=== PATIENT | male | born 1950 | race Caucasian/White ===

== ENCOUNTER 2017-05-11 10:53 | Inpatient (IN) | payer MEDICARE, MEDICAID ==
[~2017-05-11] VITALS: Ht 177.8 cm; Wt 68.0 kg
--- NOTE | 2017-05-11 11:56 | NUR ---
gave report to zainab
--- NOTE | 2017-05-11 11:57 | NUR ---
pt to 315
[2017-05-11] MEDS ORDERED: PANT40TA4 PO (12:09)
[2017-05-11] MEDS ORDERED: MULT-213 PO (12:09)
[2017-05-11] MEDS ORDERED: CLON0.5T PO (12:09)
[2017-05-11] MEDS ORDERED: ASPI81TA2 PO (12:09)
[2017-05-11] MEDS ORDERED: ONDA4TAB5 PO (12:09)
[2017-05-11] MEDS ORDERED: UBID100C13 PO (12:09)
[2017-05-11] MEDS ORDERED: PARO20TA6 PO (12:09)
[2017-05-11] MEDS ORDERED: SENN8.6T6 PO (12:09)
[2017-05-11] MEDS ORDERED: DOCU-25 PO (12:09)
[2017-05-11] MEDS ORDERED: ATOR40TA PO (12:09)
[2017-05-11] MEDS ORDERED: ACET-2605 PO (12:09)
[2017-05-11] MEDS ORDERED: HYDR2TAB35 PO (12:09)
[2017-05-11] MEDS ORDERED: APIX5TAB PO (12:09)
[2017-05-11] MEDS ORDERED: CARV6.252 PO (12:09)
[2017-05-11] MEDS ORDERED: CHOL200026 PO (12:09)
--- NOTE | 2017-05-11 13:00 | NUR ---
REPRESENTATIVE OPENING NOTES. PT RECEIVED VIA ER. PT A&0X3 SITTING ON EDGE OF BED WITH SOME CONFUSION TO WHY HE WAS TRANSPORTED HERE. PT TOLERATING ROOM AIR WITH NO SOB. LUNGS AUSCULTATED CLEAR THROUGHOUT. PT REPORTING MINOR CHRONIC PAIN TO RIGHT SHOULDER AND MINOR CHRONIC PAIN TO LEFT SIDE CARDIAC DEVICE. PT REQUESTING ANALGESIA BUT DECLINES TYLENOL, PT SPECIFICALLY REQUESTING PERCOCET 20MG. PT WITH NO SIGN OF DISTRESS OR DISCOMFORT, ALL VITALS WNL. PT REPORTING MINOR ANXIETY AND REQUESTING ANXIOLYTIC. PT IS WITHOUT IVC. PT BRIEFED ON TODAY'S POC. PT BED IN LOWEST LOCKED POSITION WITH CALL HOPKINS WITH REACH AND HANDRAILSX2. PT WITHOUT CONCERN OR COMPLAINT AT THIS TIME.
[2017-05-11] MEDS ORDERED: ACETAMINOPHEN 325 MG TABLET PO PRN (15:00)
[2017-05-11] MEDS ORDERED: Z GUARD REMEDY 2 OZ OINT TP PRN (15:00)
[2017-05-11] MEDS ORDERED: HYDROCODONE/APAP 5/325MG 1 EACH TABLET PO PRN (15:00)
[2017-05-11] MEDS ORDERED: SENNOSIDES 8.6 MG TABLET PO PRN (15:00)
[2017-05-11] MEDS ORDERED: MAG HYDROX/AL HYDROX/SIMETH 30 ML UDC PO PRN (15:00)
[2017-05-11] MEDS ORDERED: ONDANSETRON 4 MG TAB.RAPDIS PO PRN (15:00)
[2017-05-11] MEDS ORDERED: MAGNESIUM HYDROXIDE 30 ML UDC PO PRN (15:00)
[2017-05-11] MEDS ORDERED: ONDANSETRON HCL/PF 4 MG/2 ML VIAL IVP PRN (15:00)
[2017-05-11] MEDS ORDERED: ZOLPIDEM TARTRATE 5 MG TABLET PO PRN (15:00)
[2017-05-11] MEDS ORDERED: IV NS 0.9% 1,000 ML IV PRN (15:00)
[2017-05-11] MEDS: clonazePAM 0.5 MG TABLET PO PRN (15:48)
--- NOTE | 2017-05-11 15:52 | NUR ---
PATIENT IN BED, APPEARS ANXIOUS. DENIES CHEST PAIN. ON ROOM AIR, TOLERATING WELL, SATING 98%, NO SOB. GIVEN KLONOPIN 0.5MG PO PRN. WILL REASSESS.
[2017-05-11 16:00] VITALS: BP 125/78
--- NOTE | 2017-05-11 16:00 | NUR ---
DAIRY DEPARTMENT MANAGER NOTES. PT REFUSING IVC PLACEMENT, PT EDUCATION PROVIDED, RISK BENEFIT EXPLAINED. PT REFUSEDX3. CHARGE NURSE AND MD NOTIFIED.
--- NOTE | 2017-05-11 16:26 | NUR ---
PATIENT STATED HE HAD A RASH WHEN HE TOOK NORCO BEFORE AND REQUESTED PERCOCET INSTEAD FOR PAIN. NOTIFIED DR. AMANDO GUERRA WITH NEW ORDERS NOTED AND ACKNOWLEDGED, INFORMED PHARMACY AND UPDATED PATIENT ALLERGIES TO MEDICATION.
[2017-05-11] MEDS: CARVEDILOL 6.25 MG TABLET PO SCH ×2 (16:49→16:56)
[2017-05-11] MEDS: oxyCODONE/APAP (5/325 MG) 1 UDTAB TABLET PO PRN ×2 (16:49→20:52)
[2017-05-11] MEDS: APIXABAN 5 MG TABLET PO SCH (16:50)
--- NOTE | 2017-05-11 16:58 | NUR ---
CARVEDILOL 6.25MG PO NON ADMINISTERED, PATIENT REFUSING, EDUCATE AND EXPLAINED RISK AND BENEFITS OF THE MEDICATION, PATIENT STILL REFUSED X3, AND STATED "MY BLOOD PRESSURE IS NOT HIGH" Addendum: 05/11/17 at 1700 by ROBERT PACHECO RN MEDICATION WAISTED.
[2017-05-11] MEDS ORDERED: OXYC-34 PO (18:29)
--- NOTE | 2017-05-11 18:33 | NUR ---
PATIENT REPORTED PERCOCET 5/325MG 1 TAB. IS INEFFECTIVE RELIEVING HIS RIGHT SHOULDER PAIN. RECORDS SHOWING IN THE FACILITY PATIENT WAS TAKING PERCOCET 10/325MG. INFORMED DR. AMANDO GUERRA WITH NEW ORDERS NOTED AND ACKNOWLEDGED.
--- NOTE | 2017-05-11 19:35 | NUR ---
MS/RN NOTES RECEIVED PT. LYING IN BED. PT. IS AWAKE, ALERT AND ORIENTED X4. BREATHING EVEN AND UNLABORED ON ROOM AIR. NO SOB OR RESPIRATORY DISTRESS NOTED AT THIS TIME. PT. COMPLAINING OF PAIN 5/10 IN HIS RIGHT ARM. WILL CONTINUE TO MONITOR FOR PAIN AND ADMINISTER PAIN MEDICATION TO PT. ORDERED. PT. REMAINS WITH NO IV ACCESS. PER DAYSHIFT NURSE IS AWARE. BED LOCKED AND IN LOWEST POSITION, SIDE RAILS UP X2, WILL CONTINUE TO MONITOR.
--- NOTE | 2017-05-11 19:46 | NUR ---
BOTTOM STAINER CLOSING NOTES. PT A&0X3, RESTING. PT TOLERATING ROOM AIR WITH NO SOB. PT REPORTING PAIN 7/10 FROM PREVIOUS INJURIES AND SOME ANXIETY. PT WITH NO S/S OF DISTRESS OR DISCOMFORT. PT REFUSED IVC AND REMAINS WITHOUT ACCESS. PT BED IN LOWEST LOCKED POSITION, HANDRAILSX2 AND CALL HOPKINS WITHIN REACH. ALL DAY NURSE DUTIES ATTENDED TO, WILL ENDORSE TO NIGHT NURSE.
[2017-05-11 20:22] VITALS: BP 115/59
[2017-05-11] MEDS: ATORVASTATIN 40 MG TABLET PO SCH (22:19)
--- NOTE | 2017-05-12 06:58 | NUR ---
MS/RN NOTES PT. IS LYING IN BED RESTING. BREATHING EVEN AND UNLABORED ON ROOM AIR. NO SOB OR RESPIRATORY DISTRESS OR PAIN NOTED AT THIS TIME.PT. REMAINS WITH NO IV ACCESS, MD IS AWARE. ALL PT. NEEDS MET. ALL DUE MEDICATIONS GIVEN. BED LOCKED AND IN LOWEST POSITION, SIDE RAILS UP X2, WILL ENDORSE TO DAYSHIFT NURSE FOR CONTINUITY OF CARE.
--- NOTE | 2017-05-12 07:58 | NUR ---
MS/RN OPENING NOTE PATIENT RECEIVED IN BED IN STABLE CONDITION. A/O X 4. NO SIGNS OF ACUTE DISTRESS. NO COMPLAIN OF PAIN OR DISCOMFORT. ALL NEEDS ATTENDED TO. CALL LIGHT WITHIN REACH. WILL CONTINUE TO MONITOR TO ENSURE SAFETY.
[2017-05-12 08:00] VITALS: BP 146/75
[2017-05-12 08:49] LABS: BASOPHILS % (AUTO) 0.2 % (0.0-2.0); EOSINOPHILS # (AUTO) 0.2 /CMM (0.0-0.7); HEMATOCRIT 49 % (39-51); LYMPHOCYTES % (AUTO) 25.1 % (20.0-44.0); MEAN CORPUSCULAR HEMOGLOBIN 32 PG (26.0-33.0); MEAN CORPUSCULAR HGB CONC 33 g/dl (31.0-36.0); MEAN CORPUSCULAR VOLUME 99 fL (80-96); MONOCYTES # (AUTO) 0.8 /CMM (0.1-1.30); MONOCYTES % (AUTO) 9.3 % (2.0-12.0); NEUTROPHILS # (AUTO) 5.1 /CMM (1.8-8.9); NEUTROPHILS % (AUTO) 62.4 % (43.0-81.0); PLATELET COUNT (AUTO) 219 /CMM (150-450); RDW COEFFICIENT OF VARIATION 13.5 (11.5-15.0); RED BLOOD CELL COUNT(AUTO) 4.97 MIL/uL (4.5-6.0); WHITE BLOOD COUNT (AUTO) 8.1 K/uL (4.3-11.0)
[2017-05-12] MEDS: PANTOPRAZOLE 40 MG TABLET.DR PO SCH (08:55)
[2017-05-12] MEDS: DOCUSATE SODIUM 100 MG CAPSULE PO SCH (08:55)
[2017-05-12] MEDS: MULTIVITAMINS,THERAGRAN 1 UDTAB TABLET PO SCH (08:55)
[2017-05-12] MEDS: oxyCODONE/APAP (5/325 MG) 1 UDTAB TABLET PO PRN ×3 (08:55→23:06)
[2017-05-12] MEDS: APIXABAN 5 MG TABLET PO SCH ×2 (08:55→16:24)
[2017-05-12] MEDS: ASPIRIN 81 MG TAB.CHEW PO SCH (08:55)
[2017-05-12] MEDS: PAROXETINE HCL 20 MG TABLET PO SCH (08:56)
[2017-05-12] MEDS: CARVEDILOL 6.25 MG TABLET PO SCH ×2 (08:56→16:24)
[2017-05-12] MEDS: CHOLECALCIFEROL 1,000 UNIT TABLET (VIT D3) PO SCH (08:57)
[2017-05-12 09:08] LABS: THYROID STIMULATING HORMONE 0.724 uIU/mL (0.358-3.74)
[2017-05-12 09:11] LABS: ALBUMIN 3.8 g/dL (3.4-5.0); BILIRUBIN,DIRECT 0.1 mg/dL (0.0-0.2); BILIRUBIN,TOTAL 0.9 mg/dL (0.2-1.0); CREATININE 1.1 mg/dL (0.6-1.3); MAGNESIUM 1.8 mg/dL (1.8-2.4); PHOSPHORUS 3.9 mg/dL (2.5-4.9); TOTAL PROTEIN, SERUM 7.6 g/dL (6.4-8.2)
[2017-05-12 16:00] VITALS: BP 127/95
[2017-05-12] MEDS: clonazePAM 0.5 MG TABLET PO PRN (16:24)
--- NOTE | 2017-05-12 18:31 | NUR ---
MS/RN CLOSING NOTE PATIENT IN BED IN STABLE CONDITION. A/O X 4. NO SIGNS OF ACUTE DISTRESS. NO COMPLAIN OF PAIN OR DISCOMFORT. ALL NEEDS ATTENDED TO. CALL LIGHT WITHIN REACH. WILL ENDORSE TO NEXT SHIFT FOR CONTINUITY OF CARE.
--- NOTE | 2017-05-12 19:22 | NUR ---
MS RN NOTES RECEIVED PT IN BED, AWAKE, A/0 X 4, VERBALLY RESPONSIVE. WATCHING TV AT THIS TIME. NO DISTRESS, NO SOB NOTED. RESPIRATION IS EVEN AND UNLABORED. PT REFUSED IV INSERTION , RISK AND BENEFITS EXPLAINED. PT STILL REFUSED. NO C/O PAIN OR DISCOMFORT AT THIS TIME. ALL NEEDS ATTENDED AND MET. KEPT COMFORTABLE. SAFETY PRECAUTIONS OBSERVED. CALL LIGHT WITHIN REACH. WILL CONT TO MONITOR.
[2017-05-12 20:00] VITALS: BP 124/87
[2017-05-12] MEDS: ATORVASTATIN 40 MG TABLET PO SCH (22:59)
--- NOTE | 2017-05-12 23:31 | NUR ---
placed a call to dr. lainez relayed pt's request for dilaudid due to percocet isn't effective for pain. received an order for dilaudid 2 mg q 4 hrs prn for severe pain, noted and carried out. pt is a/o x 4, stated that he usually takes dilaudid 2 mg tablet at [facility] and never had an allergic reaction to it.
[2017-05-13] MEDS ORDERED: HYDROMORPHONE HCL 2 MG TABLET ONE (00:54)
[2017-05-13] MEDS: HYDROMORPHONE HCL 2 MG TABLET PO PRN ×5 (01:11→23:33)
--- NOTE | 2017-05-13 07:04 | NUR ---
MS RN NOTES PT IN BED, RESTING AT THIS TIME, AROUSES EASILY, A/0 X 4, VERBALLY RESPONSIVE. NO DISTRESS, NO SOB NOTED. RESPIRATION IS EVEN AND UNLABORED. NO C/O PAIN OR DISCOMFORT AT THIS TIME. ALL NEEDS ATTENDED AND MET. KEPT COMFORTABLE. SAFETY PRECAUTIONS OBSERVED. CALL LIGHT WITHIN REACH. WILL ENDORSE TO NEXT SHIFT FOR GAIL. .
--- NOTE | 2017-05-13 07:20 | NUR ---
MS RN RECEIVED ON BED, AWAKE,ALERT,ORIENTED X4, NOT IN ANY FORM OF DISTRESS, RESPIRATIONS EVEN AND UNLABORED,NO SOB NOTED, LUNGS ARE CLEAR,ABDOMEN SOFT, POSITIVE BOWEL SOUNDS, DENIES PAIN AT THIS TIME, WILL MONITOR PATIENT'S CONDITION.
[2017-05-13] MEDS: PANTOPRAZOLE 40 MG TABLET.DR PO SCH (07:30)
--- NOTE | 2017-05-13 07:30 | NUR ---
MS RN RECEIVED ON BED, AWAKE,ALERT,ORIENTED X2-3, NOT IN ANY FORM OF DISTRESS, RESPIRATIONS EVEN AND UNLABORED, NO SOB NOTED. LUNGS ARE CLEAR,ABDOMEN SOFT,POSITIVE BOWEL SOUNDS, DENIES PAIN A THIS TIME, THAI SPEAKING TIANNA,WILL CONTINUE TO MONITOR PATIENT. Addendum: 05/13/17 at 1558 by ADRIAN RIVERO RN DISREGARD NOTES, WRONG PATIENT.
[2017-05-13 08:00] VITALS: BP 105/61
[2017-05-13] MEDS: CARVEDILOL 6.25 MG TABLET PO SCH ×2 (09:00→17:16)
--- NOTE | 2017-05-13 09:20 | NUR ---
MS RN BREAKFAST SERVED,DUE MEDS GIVEN,TOLERATWED WELL. ALL NEEDS ATTENDED.
[2017-05-13] MEDS: APIXABAN 5 MG TABLET PO SCH ×2 (09:56→17:15)
[2017-05-13] MEDS: ASPIRIN 81 MG TAB.CHEW PO SCH (09:56)
[2017-05-13] MEDS: DOCUSATE SODIUM 100 MG CAPSULE PO SCH (09:56)
[2017-05-13] MEDS: MULTIVITAMINS,THERAGRAN 1 UDTAB TABLET PO SCH (09:56)
[2017-05-13] MEDS: PAROXETINE HCL 20 MG TABLET PO SCH (09:57)
--- NOTE | 2017-05-13 11:00 | NUR ---
MS RN WAS SEEN BY DR. GOEL, NO ORDER AT THIS TIME, ALL NEEDS ATTENDED.
--- NOTE | 2017-05-13 11:30 | NUR ---
MS JONES WAS SEEN BY DR. ELIZABETH Lopez/ ORDERS MADE AND CARRIED OUT. Addendum: 05/13/17 at 1557 by ADRIAN RIVERO RN DISREGARD NOTES, WRONG PATIENT.
--- NOTE | 2017-05-13 11:40 | NUR ---
MS JONES WAS SEEN BY DR. FOWLER, AWAITING FOR ORDERS. Addendum: 05/13/17 at 1557 by ADRIAN RIVERO RN DISREGARD NOTES, WRONG PATIENT.
[2017-05-13] MEDS: clonazePAM 0.5 MG TABLET PO PRN (12:03)
[2017-05-13] MEDS: CHOLECALCIFEROL 1,000 UNIT TABLET (VIT D3) PO SCH (12:07)
[2017-05-13 16:00] VITALS: BP 112/63
--- NOTE | 2017-05-13 17:59 | NUR ---
MS RN ON BED, NO CHANGE OF CONDITION.
--- NOTE | 2017-05-13 19:25 | NUR ---
MS RN NOTES RECEIVED PT IN BED, A/0 X 4, VERBALLY RESPONSIVE. WATCHING TV AT THIS TIME. NO DISTRESS, NO SOB NOTED. NO C/O PAIN OR DISCOMFORT AT THIS TIME. ALL NEEDS ATTENDED AND MET. KEPT COMFORTABLE. SAFETY PRECAUTIONS OBSERVED. CALL LIGHT WITHIN REACH. WILL CONT TO MONITOR.
[2017-05-13 20:00] VITALS: BP 120/82
--- NOTE | 2017-05-13 22:18 | NUR ---
PT IS C/O ANXIETY AT THIS TIME, TRIED TO DIVERT PT'S ATTENTION , INSTRUCTED TO DO DEEP BREATHING AND VERBALIZATION OF FEELINGS , NON PHARMACOLOGICAL INTERVENTION RENDERED , PER PT IT HELPS HIM A LITLE BIT BUT STILL WITH C/O ANXIETY PT REQUESTING TO CHANGE CLONAZEPAM ORDER TO 0.5 MG Q 12 HRS PRN, PLACED A CALL TO DR. MCDONALD AND RELAYED PT'S CONCERN , MD WITH N.O NOTED AND CARRIED OUT.
[2017-05-13] MEDS: ATORVASTATIN 40 MG TABLET PO SCH (22:44)
[2017-05-14] MEDS ORDERED: clonazePAM 0.5 MG TABLET ONE (00:24)
[2017-05-14] MEDS: clonazePAM 0.5 MG TABLET PO PRN ×2 (01:24→13:25)
--- NOTE | 2017-05-14 06:48 | NUR ---
MS RN NOTES PT IN BED, RESTING COMFORTABLY AT THIS TIME, AROUSES EASILY. REMAINS A/0 X 4, VERBALLY RESPONSIVE. NO DISTRESS, NO SOB NOTED. NO C/O PAIN OR DISCOMFORT AT THIS TIME. ALL NEEDS ATTENDED AND MET. KEPT COMFORTABLE. SAFETY PRECAUTIONS OBSERVED. CALL LIGHT WITHIN REACH. NO C/O PAIN OR DISCOMFORT AT THSI TIME. WILL ENDORSE TO NEXT SHIFT FOR GAIL.
--- NOTE | 2017-05-14 07:25 | NUR ---
MS RN OPENING NOTES RECEIVED PT ASLEEP IN BED, EASILY AWAKENS. A/O X 4, VERBALLY RESPONSIVE, DENIES PAIN OR DISCOMFORTS AT THIS TIME. ON ROOM AIR, RESPIRATION IS EVEN AND UNLABORED. HOB ELEVATED. BED IN LOW AND LOCKED POSITION. CALL LIGHT WITHIN REACH. WILL CONTINUE TO MONITOR PT ACCORDINGLY.
[2017-05-14] MEDS: PANTOPRAZOLE 40 MG TABLET.DR PO SCH (07:58)
[2017-05-14 08:00] VITALS: BP 119/78
[2017-05-14] MEDS: ASPIRIN 81 MG TAB.CHEW PO SCH (08:46)
[2017-05-14] MEDS: CARVEDILOL 6.25 MG TABLET PO SCH ×2 (08:46→17:17)
[2017-05-14] MEDS: CHOLECALCIFEROL 1,000 UNIT TABLET (VIT D3) PO SCH (08:46)
[2017-05-14] MEDS: DOCUSATE SODIUM 100 MG CAPSULE PO SCH (08:46)
[2017-05-14] MEDS: PAROXETINE HCL 20 MG TABLET PO SCH (08:47)
[2017-05-14] MEDS: MULTIVITAMINS,THERAGRAN 1 UDTAB TABLET PO SCH (09:02)
[2017-05-14] MEDS: APIXABAN 5 MG TABLET PO SCH ×2 (09:02→17:17)
[2017-05-14] MEDS: HYDROMORPHONE HCL 2 MG TABLET PO PRN ×3 (09:03→18:19)
[2017-05-14 16:00] VITALS: BP 127/71
[2017-05-14 17:17] VITALS: BP 128/80
--- NOTE | 2017-05-14 18:59 | NUR ---
RN DISCHARGED NOTES PATIENT DISCHARGED TO [facility] IN STABLE CONDITION. REPORT GIVEN TO CHARGE NURSE NISSA. PT LEFT UNIT VIA GURNEY ACCOMPANIED BY EMT CREW AT 1845H. A/O X 4. ON ROOM AIR, NO ACUTE SIGNS OF DISTRESS NOTED ON DISCHARGED. V/S CHECKED AND RECORDED. SKIN IS INTACT. BELONGINGS CHECKED, COUNTED AND SIGNED FORM. FLU AND PNA VACCINES NOT GIVEN, PT VERBALIZED THAT HE RECEIVED THEM BUT FORGOT THE DATES. HEALTH TEACHINGS GIVEN AND VERBALIZED UNDERSTANDING. MD AND CHARGE NURSE AWARE OF DISCHARGE.
== END 2017-05-14 18:52 | DRG 917 ==
LOC: ER 11:38 → MED 12:46
PROVIDERS: ADMIT Internal Medicine; ATTEND Internal Medicine
DX: T59.811A Toxic effect of smoke, accidental (unintentional), initial encounter (principal); J96.01 Acute respiratory failure with hypoxia; D68.59 Other primary thrombophilia; J70.5 Respiratory conditions due to smoke inhalation; I42.9 Cardiomyopathy, unspecified; I48.91 Unspecified atrial fibrillation; Y92.89 Other specified places as the place of occurrence of the external cause; Y92.129 Unspecified place in nursing home as the place of occurrence of the external cause; I10 Essential (primary) hypertension; F41.9 Anxiety disorder, unspecified; E78.5 Hyperlipidemia, unspecified; I25.10 Atherosclerotic heart disease of native coronary artery without angina pectoris; I25.2 Old myocardial infarction; Z95.1 Presence of aortocoronary bypass graft; Z79.899 Other long term (current) drug therapy; Z79.82 Long term (current) use of aspirin
CPT/HCPCS: 36415; 71010-TC; 80053-TC; 80061-TC; 80076-TC; 82746; 83540-TC; 83735-TC; 84100-TC; 84443-TC; 85025-TC; 87040-TC; 87081-TC; 93307-TC; J7030; Z7610

== ENCOUNTER 2019-10-08 11:53 | Emergency (ER) | payer MEDICARE, OTHER ==
[~2019-10-08] VITALS: Ht 190.5 cm; Wt 85.3 kg
[~2019-10-08 11:53] MED LIST: ACET-2605 PO; APIX5TAB PO; ASPI-1169 PO; ATOR40TA PO; CARV6.252 PO; CHOL200026 PO; CLON0.5T PO; DOCU-141 PO; HYDR2TAB35 PO; MULT-213 PO; ONDA4TAB5 PO; OXYC-133 PO; PANT40TA4 PO; PARO20TA7 PO; SENN-261 PO; UBID100C13 PO
--- NOTE | 2019-10-08 12:01 | NUR ---
CAME IN FOR R SHOULDER AND ELBOW PAIN S/P TRIPPED AND FELL 2 DAYS AGO 01/14. TO ER BED 9, HOOKED TO MONITOR, CHANGED TO HOSP GOWN, AWAITING MD YOU
[2019-10-08] MEDS ORDERED: IBUPROFEN 600 MG TABLET PO ONE ×2 (12:18→12:30)
--- NOTE | 2019-10-08 12:25 | NUR ---
CORNER BRACE BLOCK MACHINE OPERATOR AT BEDSIDE FOR XRAY.
--- NOTE | 2019-10-08 13:25 | NUR ---
Patient discharged to home in stable condition. Written and verbal after care instructions given. Patient verbalizes understanding of instruction.
[2019-10-08 13:26] VITALS: BP 101/68
== END 2019-10-08 13:27 | disposition home or self-care (01) ==
LOC: ER 11:55
DX: S40.011A Contusion of right shoulder, initial encounter (principal); I10 Essential (primary) hypertension; Z98.890 Other specified postprocedural states; Z88.5 Allergy status to narcotic agent; Z79.899 Other long term (current) drug therapy; Z79.82 Long term (current) use of aspirin; W01.0XXA Fall on same level from slipping, tripping and stumbling without subsequent striking against object, initial encounter; Y93.89 Activity, other specified; Y92.89 Other specified places as the place of occurrence of the external cause; Y99.8 Other external cause status
CPT/HCPCS: 73030-TC; 73060-TC; 73080-TC